=== PATIENT | female | born 1995 | race Two or more races ===

== ENCOUNTER → 2024-11-21 | Outpatient (CLI) | payer OTHER, SELFPAY ==
[2024-11-21 09:48] LABS: Basophils # (Auto) 0.0 Thou/mm3 (0.0-0.2); Basophils % (Auto) 1 % (0-2.5); Eosinophils # (Auto) 0.1 Thou/mm3 (0.0-0.5); Eosinophils % (Auto) 1 % (0-10); Hematocrit 40.8 % (36.0-46.0); Hemoglobin 14.1 g/dL (12.0-16.0); Immature Granulocytes Auto 0.01 Thou/mm3 (0.00-0.00); Lymphocytes # (Auto) 1.4 Thou/mm3 (1.0-4.8); Lymphocytes % (Auto) 32 % (10-50); Mean Corpuscular HGB Conc 34.6 g/dl (31.0-37.0); Mean Corpuscular Hemoglobin 31.6 pg (25.0-35.0); Mean Corpuscular Volume 92 fL (80-100); Monocytes # (Auto) 0.3 Thou/mm3 (0.0-0.8); Monocytes % (Auto) 6 % (0-12); Neutrophils # (Auto) 2.7 Thou/mm3 (1.8-7.7); Neutrophils % (Auto) 61 % (37-80); Nucleated Red Blood Cell # 0.00 Thou/mm3 (0.00-0.00); Nucleated Red Blood Cell % 0 /100 WBC (0); Platelet Count 198 Thou/mm3 (140-440); RDW Standard Deviation 39.8 fL (36.4-46.3); Red Blood Count 4.46 Miln/mm3 (4.00-5.20); White Blood Count 4.4 Thou/mm3 (3.6-11.0)
[2024-11-21 09:59] LABS: T4 (Thyroxine) 8.3 mcg/dL (4.5-10.9)
[2024-11-21 10:23] LABS: Alanine Aminotransferase 13 U/L (10-49); Albumin, Serum 4.7 gm/dL (3.5-5.0); Albumin/Globulin Ratio 2.0 (1.2-2.2); Alkaline Phosphatase 64 U/L (46-116); Anion Gap 9 (7-16); Aspartate Amino Transferase 24 U/L (0-34); BUN/Creatinine Ratio 9 Ratio (12-20); Bilirubin,Total 0.8 mg/dL (0.3-1.2); Blood Urea Nitrogen 7 mg/dL (9-23); Calcium 9.8 mg/dL (8.3-10.6); Calcium (Corrected) 9.8 mg/dL (8.5-10.1); Carbon Dioxide 23.7 mMol/L (20.0-31.0); Chloride 109 mMol/L (98-107); Creatinine (Component) 0.8 mg/dL (0.6-1.3); Globulin 2.3 gm/dL (2.3-3.5); Glucose 79 mg/dL (74-106); Osmolality,Calculated 280 (275-295); Potassium 4.3 mMol/L (3.4-5.1); Sodium 142 mMol/L (136-145); Thyroid Stimulating Hormone 0.75 uIU/mL (0.55-4.78); Total Protein 7.0 gm/dL (5.7-8.2); eGFR > 60 See Note
[2024-11-21 14:20] LABS: Cholesterol 187 mg/dL (132-200); Triglycerides 77 mg/dL (30-150)
[2024-11-21 14:58] LABS: Cardiac Risk Estimate 3.2 RATIO (3.7-5.6); HDL Cholesterol 58 mg/dL (40-60); LDL Cholesterol,Calculated 114 mg/dL (0-130)
[2024-11-21 15:29] LABS: Glucose Estimated Average 82 mg/dL (80-131); Hemoglobin A1C 4.5 % Hgb (4.8-6.0)
== END | disposition home or self-care (01) ==
PROVIDERS: PCP Family Medicine; Referring Provider Family Medicine; Visit Provider Family Medicine
DX: E66.09 Other obesity due to excess calories (principal); R79.9 Abnormal finding of blood chemistry, unspecified
CPT/HCPCS: 36415; 80053; 80061; 83036; 84436; 84443; 85025

== ENCOUNTER 2025-02-20 02:25 | Emergency (ER) | payer BC, SELFPAY ==
[2025-02-20 02:26] VITALS: BP 117/79; PULSE 65; RESP 18; TEMP 36.4; O2SAT 98
[2025-02-20 02:27] VITALS: BMI 25.1
--- NOTE | 2025-02-20 02:46 | EDNOTE_ITS ---
ED Headache RME/HPI General Chief Complaint: Headache Stated Complaint: PAIN BACK OF HEAD RADIATING TO SHOULDERS Time Seen by Provider: 02/20/25 02:44 Arrival date/time: 02/20/25 02:25 RME / HPI RME / HPI Narrative: CC: neck pain Patient is a 29-year-old female with no past medical history who presented to the emergency room with a chief complaint of neck pain and stiffness over the last 3 days. Per patient this has happened previously before but the day worsening pain, 10 out of 10. Denied loss of sensation to upper or lower extremities. Denied loss of motor function. Denied blurry vision denied ocular pain with eye movement. Denied nausea or vomiting. Denied fevers or chills at home. Denies seizure. Denied any syncope. 1 month ago patient did experience a slip in the shower but did not fall or hit her head. Denied history of autoimmune disease. Patient is currently on semaglutide which was recently started in September. Cervical Spine, HCG, and Ketorolac 30 mg IM X 1 Related Data Home Medications ?Medication ?Instructions ?Recorded ?Confirmed vit no.95-ferrous 1 tab PO QDAY 10/17/1810/08 fumarate 28 mg-folic acid 800 mcg tablet () Previous Rx's ?Medication ?Instructions ?Recorded cyclobenzaprine 5 mg tablet 5 mg PO TID PRN muscle spa sm 7 02/20/25 days #20 tabs naproxen 250 mg tablet 250 mg PO BID PRN pain #10 t abs 02/20/25 Allergies Allergy/AdvReac Type Severity Reaction Status Date / Time No Known Allergies Allergy Verified 02/20/25 02:27 Review of Systems Review of Systems Narrative Review of Systems: General appearance: NO weight change, NO fatigue, NO weakness, NO fever, NO chills, NO night sweats, No cough Skin: NO rash, NO itching, NO sores, NO moles HEENT: Yes neck pain, NO Trauma, NO nausea, NO vomiting, NO visual changes, NO blurry vision, NO double vision, NO tinnitus, NO vertigo, NO ear discharge, NO rhinorrhea, NO stuffiness, NO sneezing, NO allergy, NO epistaxis. NO Hoarseness, NO sore throat, NO swollen neck. Cardiac: NO Palpitations, NO dyspnea on exertion, NO orthopnea, NO paroxysmal nocturnal dyspnea, NO edema Respiratory: NO Shortness of Breath, NO Wheezing, NO Cough, NO Sputum, NO hemoptysis GI:NO appetite, NO nausea, NO vomiting, NO dysphagia, NO changes in bowel frequency, NO stool color, NO diarrhea, NO constipation, NO hemetemesis, NO hemorrhoids, NO melena, NO hematechezia, NO abdominal pain, NO jaundice Renal: NO frequency, NO hesitancy, NO urgency, NO hematuria, NO nocturia, NO incontinence MSK: NO muscle weakness, NO gout, NO arthritis, NO muscle stiffness Neuro: NO headaches, NO tremors, NO weakness, NO paralysis, NO seizures, NO loss of consciousness, NO numbness. Hem: NO anemia, NO easy bruising/bleeding, NO petechiae, NO purpura Endo: NO heat/cold intolerance, NO excessive sweating, NO polyuria, NO polydipsia, NO polyphagia, NO thyroid problems, NO diabetes Pysch: NO mood, NO anxiety, NO depression ED Exam Narrative Physical exam: General Appearance: Alert & Oriented X3, well-nourished female who is lying in bed in mild distress, secondary to cervical neck pain. No rash noted on neck. Spine palpated, no fractures noted. Mild tenderness at C2 region. HEENT: Skull symmetrical and atraumatic. Conjunctivae pink and moist. Pupils equal, round, reactive to light and accommodation (PERRL). External ear without lesion or discharge. Straight, nares patient, mucosa pink, no discharge. Cardio: Normal Rate and Rhythm with S1 and S2 heart sounds. No murmurs or extra heart sounds auscultated. No bruits on carotid auscultation. No peripheral edema or cyanosis. Lungs: Symmetric with good expansion. Chest and back non-tender. Breath sounds vesicular without crackles, wheezing or rhonchi Abdomen: Non-tender, Non-distended, Normal Reactive Bowel Sounds Neuro: Alert, cooperative, oriented to person, place, and time. Speech clear. CN grossly intact. Upper motor strength 5/5 and Lower motor strength 5/5. Sensation intact. Course Course Course Narrative: Cervical Neck x-ray Quality Measures none Orders Category Date Time Status XR cervical spine 2-3V Stat Exams 02/20/25 03:02 Taken Ketorolac Inj [Toradol Inj] Med 02/20/25 03:02 Discontinued 30 mg IM X1 ONE Vital Signs Vital signs: Vital Signs Temperature 97.6 F 02/20/25 02:26 Pulse Rate 65 02/20/25 02:26 Respiratory Rate 18 02/20/25 02:26 Blood Pressure 117/79 02/20/25 02:26 Pulse Oximetry (%) 98 02/20/25 02:26 Oxygen Delivery Method Room Air 02/20/25 02:26 Headache Patient data External records reviewed:: [facility] previous records Clinical information provided by:: patient Social determinants that could affect healthcare access:: none Patient has the following chronic illnesses:: None How is presenting disease/condition affected by chronic disease/condition?: no chronic disease Evaluation data The following diagnostics were reviewed and interpreted by me:: radiology exam(s) Lab and/or radiology exams considered but not ordered:: None Interpretation Summary: Patient presented with no past medical history presented with chief complain of neck pain with physical exam showing no neuro deficits with good motor and sensation in upper and lower extremities. Cervical x-ray no fractures noted. Given cervical x-ray, likely diagnosis likely secondary to muscle strain, acute fracture ruled out. - The patient's plan was discussed with attending Dr. Jennifer Rodriguez MD PGY2 Internal Medicine Medications / Prescriptions Medications or Prescriptions considered but not ordered:: None Medication administrations:: Medication Administration History Discontinued Medications Ketorolac Tromethamine (Ketorolac Inj 30 Mg/Ml Vial) 30 mg IM X1 ONE Stop: 02/20/25 03:03 same as above Consultations Consultation(s) initiated? (list below): No Diagnosis Differential diagnosis headache: migraine, tension headache and other (fracture vs strain muscle ) Most likely diagnosis given after review of the tests above:: Patient presented with no past medical history presented with chief complain of neck pain with physical exam showing no neuro deficits with good motor and sensation in upper and lower extremities. Cervical x-ray no fractures noted. Given cervical x-ray, likely diagnosis likely secondary to muscle strain, acute fracture ruled out. - The patient's plan was discussed with attending Dr. Jennifer Rodriguez MD PGY2 Internal Medicine Admission Indicated Admission indicated?: not indicated Explain why admission is indicated or not indicated:: No acute process such a fracture. Admission Request Was there a request for admission?: No Disposition Plan Disposition Plan: Discharge Discharge Attestation Discharge Attestation: The patient and all family members were given an opportunity to ask questions and understood the discharge instructions. Discharge instructions specifically effects, indications for sooner follow up or return to the emergency department, and the expected course of current diagnosis. Patient condition: Stable Discharge Plan Plan Patient Disposition: HOME (Self Care) Patient condition on transfer: Stable Health Concerns: Instructions: -Cyclobenzaprine 5 mg orally up to three times a day for muscle strain for the as needed -Naproxen 250 mg twice daily as need for pain, please do not combine with other NSAIDS such as Ibuprofen -Please follow up with your primary care provider within one week of discharge -If your symptoms worsen,please seek immediate medical attention and return to your nearest emergency room -If you do not have a primary care provider, you [facility] [address], [place] [address], Prescriptions/Referrals Prescriptions/Med Rec: New cyclobenzaprine 5 mg tablet 5 mg PO TID PRN (Reason: muscle spasm) 7 Days Qty: 20 0RF naproxen 250 mg tablet 250 mg PO BID PRN (Reason: pain) Qty: 10 0RF Continued PNV no.95-ferrous fumarate-FA [] 28 mg iron- 800 mcg Tablet 1 tab PO QDAY Discontinued ibuprofen 600 mg tablet 600 mg PO Q6H PRN (Reason: pain) Qty: 30 0RF Problem List Clinical Impression: Acute strain of neck muscle Patient/Caregiver Discharge Instructions Education Materials: ED Neck Sprain or Strain Print Language: Citizen Of [place] Stand Alone Forms: [facility] Award Info., Patient Portal Info Letter
--- NOTE | 2025-02-20 03:02 | XR_ITS ---
EXAMINATION: Cervical spine 3 views TECHNIQUE: AP lateral coned AP odontoid cervical spine 3 views Date and time: February 20, 2025, 0304 hours INDICATIONS: Neck pain beginning 3 days ago FINDINGS: Satisfactory alignment cervical vertebral bodies. No cervical fracture. Intact odontoid. No significant cervical disc narrowing IMPRESSION: No cervical fracture No significant cervical disc narrowing
[2025-02-20] MEDS: KETOROLAC INJ 30 MG/ML VIAL IM (03:33)
== END 2025-02-20 03:49 | disposition home or self-care (01) ==
LOC: SERX 04:11
PROVIDERS: Emergency Provider Emergency Medicine; PCP Family Medicine
DX: S16.1XXA Strain of muscle, fascia and tendon at neck level, initial encounter (principal); X58.XXXA Exposure to other specified factors, initial encounter
CPT/HCPCS: 72040; 81025; 96372; 99283; J1885